=== PATIENT | male | born 1990 | race Hispanic/Latino ===

== ENCOUNTER 2019-12-22 14:03 | Emergency (ER) | payer SELFPAY ==
[2019-12-22 15:17] VITALS: TEMP 98.3; O2SAT 98
[2019-12-22] MEDS ORDERED: TETANUS,DIPHTHERIA,PERTUSSIS 1 EA SYG IM ONE (15:44)
--- NOTE | 2019-12-22 15:44 | ED.PDOC ---
History of Present Illness - General Chief Complaint: Bite: Animal/Insect/Human Stated Complaint: cat bite Time Seen by Provider: 12/22/19 15:10 Source: patient Exam Limitations: no limitations - History of Present Illness Initial Comments: PT GRABBED STRAY CAT THAT WAS COMING IN HIS APT. CAT BIT AND SCRATCHED ON BL DORSUM OF HANDS. Severity: moderate Improving Factors: nothing Worsening Factors: nothing Associated Symptoms: denies symptoms Allergies/Adverse Reactions: Allergies NO KNOWN ALLERGY Allergy (Verified 12/22/19 15:17) Home Medications: Ambulatory Orders Azithromycin Tab [Zithromax Tab] 250 mg PO DAILY #6 tab 12/22/19 Review of Systems - Review of Systems Constitutional: Denies: chills, fever, malaise EENTM: Denies: blurred vision, throat swelling Respiratory: Denies: cough, short of breath Cardiology: Denies: chest pain, palpitations Gastrointestinal/Abdominal: Denies: abdominal pain, nausea Genitourinary: States: no symptoms reported Musculoskeletal: Denies: joint pain, joint swelling, muscle pain, neck pain Skin: States: see HPI, lesions Neurological: Denies: headache, paresthesia, weakness Endocrine: Denies: excessive sweating, flushing Hematologic/Lymphatic: States: anemia. Denies: easy bleeding, easy bruising All other Systems: Reviewed and Negative Past Medical History (General) - Patient Medical History Hx Seizures: No Hx Stroke: No Hx Dementia: No Hx Asthma: No Hx of COPD: No Hx Cardiac Disorders: No Hx Congestive Heart Failure: No Hx Pacemaker: No Hx Hypertension: No Hx Thyroid Disease: No Hx Diabetes: No Hx Gastroesophageal Reflux: No Hx Renal Disease: No Hx of HIV: No Hx MRSA: No Surgical History: no surgical history - Vaccination History Hx Influenza Vaccination: No Hx Pneumococcal Vaccination: No - Social History Hx Tobacco Use: No Hx Alcohol Use: No Hx Substance Use: No Hx Substance Use Treatment: No Hx Depression: No Family Medical History - Family History Mother Family History: Unknown Physical Exam - Physical Exam General Appearance: Alert, No apparent distress Eye Exam: bilateral normal Ears, Nose, Throat: normal ENT inspection, normal pharynx Neck: non-tender, full range of motion, supple Respiratory: lungs clear, normal breath sounds, no respiratory distress, no accessory muscle use Cardiovascular/Chest: normal peripheral pulses, regular rate, rhythm, no murmur Peripheral Pulses: radial,right: 2+, radial,left: 2+ Gastrointestinal/Abdominal: normal bowel sounds, non tender, no organomegaly, other - NO HSM. Back Exam: normal inspection Extremity: normal range of motion, non-tender, no pedal edema, no calf tenderness Neurologic: no motor/sensory deficits, alert Skin Exam: other - MULTIPLE SCRATCHES AND PUNCTURE WOUNDS N BL DORSUM OF HANDS. Lymphatic: no adenopathy Progress - Progress Progress: 12/22/19 15:32 NO EVIDENCE OF CAT SCRATCH DISEASE BARTONELLA HENSELAE - NO NEURORETINITIS (NO NEURO SX, NO VISION CHANGES), NO HEPATOSPENIC DZ (NO HSM, NO ABD PAIN), NO LYMPHADENITIS ( NO LAD). REGARDLESS, TX WITH APPROPRIATE ABX, WHICH IS AZITHROMYCIN. PT WARNED TO LOOK FOR SX OF CAT SCRATCH DZ. ANIMAL CONTROL IS LOOKING FOR THE CAT AND WILL TEST FOR RABIES. WILL GIVE TDAP. NO CLOSURE OF HAND WOUNDS INDICATED. NURSE CLEANSING WIH SOAPY WATER, APPLYING BACITRACIN, AND COVERING WITH BANDAGE. 12/22/19 15:52 Departure - Departure Clinical Impression: Cat scratch of hand Qualifiers: Encounter type: initial encounter Laterality: unspecified laterality Qualified Code(s): S60.519A - Abrasion of unspecified hand, initial encounter; W55.03XA - Scratched by cat, initial encounter Cat bite of hand Qualifiers: Encounter type: initial encounter Laterality: unspecified laterality Qualified Code(s): S61.459A - Open bite of unspecified hand, initial encounter; W55.01XA - Bitten by cat, initial encounter Disposition: Discharge to Home or Self Care Condition: Good Departure Forms: ED Discharge - Pt. Copy, Patient Portal Self Enrollment Instructions: Cat Scratch Disease (DC) Diet: resume usual diet Activity: increase activity as tolerated Prescriptions: Azithromycin Tab [Zithromax Tab] 250 mg PO DAILY #6 tab Home Medications: Ambulatory Orders Azithromycin Tab [Zithromax Tab] 250 mg PO DAILY #6 tab 12/22/19 Additional Instructions: If you notice any new symptoms such as vision changes, stomach ache, headaches, fevers, chills, sweats, please see your doctor or return to ER. Please take all 5 days of Z-pack. Please twice per day wash hands with soap and water, apply antibiotic ointment, and cove with bandaids.
[2019-12-22] MEDS ORDERED: CHLORHEXIDINE GLUCONATE 4 % 15 ML UD TOP ONE (15:45)
[2019-12-22 16:11] VITALS: BP 154/89
== END 2019-12-22 16:12 | disposition home or self-care (01) ==
LOC: ER 14:03
DX: S60.519A Abrasion of unspecified hand, initial encounter (principal); S61.459A Open bite of unspecified hand, initial encounter; W55.03XA Scratched by cat, initial encounter; W55.01XA Bitten by cat, initial encounter; Y92.9 Unspecified place or not applicable